=== PATIENT | female | born 1995 | race Caucasian/White ===

== ENCOUNTER 2022-02-15 04:27 | Day surgery (SDC) | payer BC, OTHER ==
[2022-02-14 09:23] VITALS: BMI 29.1
[2022-02-15] MEDS ORDERED: ACETAMINOPHEN 325 MG TABLET (FP) PO PRN ×2 (11:59→13:50)
[2022-02-15] MEDS ORDERED: IBUPROFEN 400 MG TABLET (FP) PO PRN (11:59)
[2022-02-15] MEDS ORDERED: ONDANSETRON 4 MG/2 ML VIAL IVPUSH PRN ×2 (11:59→13:50)
[2022-02-15] MEDS ORDERED: oxyCODONE HCL 5 MG TABLET PO PRN ×2 (11:59→13:50)
[2022-02-15] MEDS ORDERED: FENTANYL CITRATE/PF 50 MCG/ML VIAL ONE (12:28)
[2022-02-15] MEDS ORDERED: MIDAZOLAM HCL 2 MG/2 ML SINGLE DOSE VIAL ONE (12:29)
[2022-02-15] MEDS ORDERED: ONDANSETRON 4 MG/2 ML VIAL ONE (13:16)
[2022-02-15] MEDS ORDERED: ACETIC ACID 500 ML BOTTLE NR ONE (13:20)
[2022-02-15] MEDS ORDERED: IODINE/POTASSIUM IODIDE 5%/10% 14 ML BOTTLE NR ONE (13:20)
[2022-02-15] MEDS ORDERED: PROPOFOL 20 ML ONE (13:29)
[2022-02-15] MEDS ORDERED: PROMETHAZINE HCL 25 MG/1 ML VIAL IVPUSH PRN (13:50)
[2022-02-15 14:31] VITALS: RESP 20
[2022-02-15 15:10] VITALS: BP 124/90; PULSE 93; TEMP 98.1
== END 2022-02-15 15:13 | disposition home or self-care (01) ==
LOC: JASU-SURG 04:27
PROVIDERS: ATTEND Obstetrics & Gynecology
PROC: 0UBC7ZX Excision of Cervix, Via Natural or Artificial Opening, Diagnostic (ICD-10-PCS; principal; 2022-02-15 14:00)
DX: N87.9 Dysplasia of cervix uteri, unspecified (principal)
CPT/HCPCS: 81025; 88305-TC; 88307-TC; 94760